=== PATIENT | male | born 1935 | race Caucasian/White ===

== ENCOUNTER 2018-08-10 22:30 | Inpatient (IN) ==
[2018-08-11] MEDS ORDERED: ALBUTEROL/IPRATROPIUM 3 ML NEB RESP TX STA (00:10)
[2018-08-11] MEDS ORDERED: methylPREDNISolone SOD SUC 125 MG/2 ML VIAL IV STA (00:12)
[2018-08-11 00:33] LABS: Basophils % 0.4 % (0.0-0.8); Eosinophils % 0.2 % (0.00-10.9); Hematocrit 47.8 VOL% (42.0-52.0); Hemoglobin 15.5 GM/DL (14.0-18.0); Immature Granulocytes % 1.1 %; Immature Granulocytes Absolute 0.09 #; Lymphocytes # 0.6 10*3/uL (1.4-4.0); Lymphocytes % 6.4 % (21.2-54.2); Mean Corpuscular HGB Conc 32.4 GM/DL (32-36); Mean Corpuscular Hemoglobin 30 PG (27-34); Mean Corpuscular Volume 90.9 FL (87-102); Mean Platelet Volume 13.1 FL (9.6-12.0); Neutrophils # 6.8 10*3/uL (1.4-7.4); Neutrophils % 79.9 % (38.7-73.9); Platelet Count 132 T/CUMM (130-400); Red Blood Count 5.26 MC/CUMM (3.8-5.5); Red Cell Distribution Width 13.9 % (9.3-17.3); White Blood Count 8.6 T/CUMM (4-12)
[2018-08-11 00:40] LABS: Albumin 3.4 G/DL (3.4-5.0); Bilirubin,Total 0.6 MG/DL (0.2-1.0); Calcium 8.9 MG/DL (8.5-10.1); Osmolality,Calculated 290.8 MOS/KG (273-304); Potassium 3.3 MMOL/L (3.5-5.1); Total Protein 6.2 G/DL (6.4-8.3)
[2018-08-11 00:54] LABS: Apearance,Urine CLEAR (Clear); Bilirubin,Urine Negative (Negative); Blood, Urine Negative (Negative); Glucose,Urine (UA) Negative (Negative); Hyaline Casts,Urine 3 /LPF (0-3); Ketones,Urine Negative (Negative); Mucus,Urine Occasional /LPF (Occasional); Nitrite,Urine Negative (Negative); Protein,Urine Negative; RBC,Urine 1 /HPF (0-4); Squamous Epithelial Cell,Urine Occasional /HPF (0-10); Urine Color Yellow (Yellow); Urine Urobilinogen < 2.0 EU/DL (0.2-1.0); WBC,Urine 4 /HPF (0-6)
[2018-08-11] MEDS: ALBUTEROL/IPRATROPIUM 3 ML NEB RESP TX SCH ×3 (01:10→19:16)
[2018-08-11] MEDS ORDERED: ALBUTEROL 2.5 MG/3 ML NEB RESP TX PRN (03:26)
[2018-08-11] MEDS ORDERED: BISACODYL 5 MG TABLET PO PRN (03:30)
[2018-08-11] MEDS ORDERED: ACETAMINOPHEN 325 MG TABLET PO PRN (03:30)
[2018-08-11] MEDS ORDERED: ONDANSETRON 4 MG/2 ML VIAL IV PRN (03:30)
[2018-08-11] MEDS ORDERED: cefTRIAXone 1,000 MG in SYRINGE 1 EACH IV SCH (04:00)
[2018-08-11] MEDS: AZITHROMYCIN INJ 500 MG in SODIUM CHLORIDE 0.9% 250 ML IV SCH (04:34)
[2018-08-11] MEDS ORDERED: MAGNESIUM SULF RIDER 4 GM in PREMIX 1 EACH IV PRN (08:52)
[2018-08-11] MEDS ORDERED: MAGNESIUM SULF RIDER 2 GM in PREMIX 1 EACH IV PRN (08:52)
[2018-08-11] MEDS ORDERED: NON-FORMULARY MEDICATION (Tiotropium Inhalation 18 MCG) INH SCH (09:00)
[2018-08-11] MEDS: MULTIVITAMIN (CENTRUM) TABLET PO SCH (09:08)
[2018-08-11] MEDS: ROFLUMILAST 500 MCG TABLET PO SCH (09:08)
[2018-08-11] MEDS: MONTELUKAST 10 MG TABLET PO SCH (09:08)
[2018-08-11] MEDS: METOPROLOL SUCCINATE XL 50 MG TABLET PO SCH ×2 (09:08→20:43)
[2018-08-11] MEDS: ASPIRIN EC 81 MG TABLET PO SCH (09:09)
[2018-08-11] MEDS: methylPREDNISolone SOD SUC 40 MG/1 ML VIAL IV SCH ×2 (09:10→17:43)
[2018-08-11] MEDS: ENOXAPARIN 40 MG/0.4 ML SYRINGE SUBCUT SCH (09:12)
[2018-08-11] MEDS: FLUTICASONE/SALMETEROL 250-50 DISKUS 14 DOSE INH SCH ×2 (10:12→20:42)
[2018-08-11] MEDS: LISINOPRIL/HCTZ 20-12.5 MG TABLET PO SCH ×2 (10:13→20:43)
[2018-08-11] MEDS: DIPYRIDAMOLE 50 MG TABLET PO SCH ×2 (10:14→20:43)
[2018-08-11] MEDS ORDERED: GLUCAGON 1 MG VIAL IM PRN (13:25)
[2018-08-11] MEDS ORDERED: DEXTROSE 50% 25 GM/50 ML VIAL IV PRN (13:25)
[2018-08-11] MEDS: LIDOCAINE 5% PATCH TRANSDERM SCH (13:53)
[2018-08-11] MEDS: CLOTRIMAZOLE 1% CREAM 15 GM TUBE TOP SCH ×2 (13:55→20:42)
[2018-08-11] MEDS: POTASSIUM CHLORIDE 20 MEQ TABLET PO PRN ×3 (14:32→18:24)
[2018-08-11] MEDS: INSULIN LISPRO 100 UNIT/ML SUBCUT SCH (16:29)
[2018-08-11] MEDS: CEFEPIME 1,000 MG in SYRINGE 1 EACH IV SCH (17:46)
[2018-08-11] MEDS: TAMSULOSIN 0.4 MG CAPSULE PO SCH (20:43)
[2018-08-11] MEDS: PRAVASTATIN 40 MG TABLET PO SCH (20:43)
[2018-08-11] MEDS: FINASTERIDE 5 MG TABLET PO SCH (20:44)
[2018-08-12] MEDS: ALBUTEROL/IPRATROPIUM 3 ML NEB RESP TX SCH ×4 (00:03→20:10)
[2018-08-12] MEDS: methylPREDNISolone SOD SUC 40 MG/1 ML VIAL IV SCH ×3 (00:39→16:03)
[2018-08-12] MEDS: CEFEPIME 1,000 MG in SYRINGE 1 EACH IV SCH ×2 (05:18→21:42)
[2018-08-12 05:55] LABS: Hematocrit 48.1 VOL% (42.0-52.0); Hemoglobin 15.9 GM/DL (14.0-18.0); Immature Granulocytes % 0.5 %; Immature Granulocytes Absolute 0.06 #; Lymphocytes # 0.4 10*3/uL (1.4-4.0); Lymphocytes % 3.6 % (21.2-54.2); Mean Corpuscular HGB Conc 33.1 GM/DL (32-36); Mean Corpuscular Hemoglobin 30 PG (27-34); Mean Corpuscular Volume 90.9 FL (87-102); Mean Platelet Volume 12.9 FL (9.6-12.0); Monocytes # 0.5 10*3/uL (0.11-0.8); Monocytes % 4.9 % (1.7-12.7); Platelet Count 140 T/CUMM (130-400); Red Blood Count 5.29 MC/CUMM (3.8-5.5); Red Cell Distribution Width 13.8 % (9.3-17.3)
[2018-08-12 06:16] LABS: Calcium 8.9 MG/DL (8.5-10.1); Potassium 4.1 MMOL/L (3.5-5.1)
[2018-08-12 06:21] LABS: Risk Ratio 1.78; Thyroid Stimulating Hormone 0.262 uIU/ml (0.358-3.74); VLDL CHOLESTEROL 9.4 MG/DL
[2018-08-12 06:23] LABS: Lymphocytes 2 % (20-55); Platelet Estimate Decreased; Segmented Neutrophils 94 % (50-85); Total Cells Counted 100
[2018-08-12] MEDS: INSULIN LISPRO 100 UNIT/ML SUBCUT SCH ×3 (08:03→16:02)
[2018-08-12] MEDS: MULTIVITAMIN (CENTRUM) TABLET PO SCH (08:42)
[2018-08-12] MEDS: METOPROLOL SUCCINATE XL 50 MG TABLET PO SCH ×2 (08:42→21:42)
[2018-08-12] MEDS: ENOXAPARIN 40 MG/0.4 ML SYRINGE SUBCUT SCH (08:42)
[2018-08-12] MEDS: ROFLUMILAST 500 MCG TABLET PO SCH (08:42)
[2018-08-12] MEDS: MONTELUKAST 10 MG TABLET PO SCH (08:42)
[2018-08-12] MEDS: LISINOPRIL/HCTZ 20-12.5 MG TABLET PO SCH ×2 (08:42→21:42)
[2018-08-12] MEDS: ASPIRIN EC 81 MG TABLET PO SCH (08:42)
[2018-08-12] MEDS: DIPYRIDAMOLE 50 MG TABLET PO SCH ×2 (08:42→21:42)
[2018-08-12] MEDS: LIDOCAINE 5% PATCH TRANSDERM SCH (08:43)
[2018-08-12] MEDS: CLOTRIMAZOLE 1% CREAM 15 GM TUBE TOP SCH ×2 (08:43→21:41)
[2018-08-12] MEDS: FLUTICASONE/SALMETEROL 250-50 DISKUS 14 DOSE INH SCH ×2 (08:43→21:41)
[2018-08-12] MEDS: AZITHROMYCIN INJ 500 MG in SODIUM CHLORIDE 0.9% 250 ML IV SCH (08:45)
[2018-08-12] MEDS: PRAVASTATIN 40 MG TABLET PO SCH (21:42)
[2018-08-12] MEDS: FINASTERIDE 5 MG TABLET PO SCH (21:42)
[2018-08-12] MEDS: TAMSULOSIN 0.4 MG CAPSULE PO SCH (21:42)
[2018-08-13] MEDS: ALBUTEROL/IPRATROPIUM 3 ML NEB RESP TX SCH ×2 (00:50→07:07)
[2018-08-13] MEDS: methylPREDNISolone SOD SUC 40 MG/1 ML VIAL IV SCH ×2 (01:12→08:51)
[2018-08-13 04:52] LABS: Hematocrit 48.6 VOL% (42.0-52.0); Hemoglobin 15.6 GM/DL (14.0-18.0); Immature Granulocytes % 0.4 %; Immature Granulocytes Absolute 0.05 #; Lymphocytes # 0.5 10*3/uL (1.4-4.0); Lymphocytes % 4.4 % (21.2-54.2); Mean Corpuscular HGB Conc 32.1 GM/DL (32-36); Mean Corpuscular Hemoglobin 30 PG (27-34); Mean Corpuscular Volume 92.9 FL (87-102); Mean Platelet Volume 12.3 FL (9.6-12.0); Monocytes # 0.5 10*3/uL (0.11-0.8); Monocytes % 4.6 % (1.7-12.7); Neutrophils # 10.3 10*3/uL (1.4-7.4); Neutrophils % 90.6 % (38.7-73.9); Platelet Count 133 T/CUMM (130-400); Red Blood Count 5.23 MC/CUMM (3.8-5.5); Red Cell Distribution Width 13.6 % (9.3-17.3); White Blood Count 11.4 T/CUMM (4-12)
[2018-08-13 05:13] LABS: Calcium 8.7 MG/DL (8.5-10.1); Osmolality,Calculated 292.1 MOS/KG (273-304); Potassium 4.4 MMOL/L (3.5-5.1)
[2018-08-13 05:26] LABS: Lymphocytes 2 % (20-55); Ovalocytes Slight; Segmented Neutrophils 96 % (50-85); Total Cells Counted 100
[2018-08-13 05:27] LABS: Microcytosis Slight; Platelet Estimate Adequate
[2018-08-13] MEDS: INSULIN LISPRO 100 UNIT/ML SUBCUT SCH (07:16)
[2018-08-13 07:26] VITALS: BP 147/79
[2018-08-13] MEDS: FLUTICASONE/SALMETEROL 250-50 DISKUS 14 DOSE INH SCH (08:49)
[2018-08-13] MEDS: CLOTRIMAZOLE 1% CREAM 15 GM TUBE TOP SCH (08:49)
[2018-08-13] MEDS: ROFLUMILAST 500 MCG TABLET PO SCH (08:50)
[2018-08-13] MEDS: ENOXAPARIN 40 MG/0.4 ML SYRINGE SUBCUT SCH (08:50)
[2018-08-13] MEDS: METOPROLOL SUCCINATE XL 50 MG TABLET PO SCH (08:50)
[2018-08-13] MEDS: DIPYRIDAMOLE 50 MG TABLET PO SCH (08:50)
[2018-08-13] MEDS: MULTIVITAMIN (CENTRUM) TABLET PO SCH (08:50)
[2018-08-13] MEDS: MONTELUKAST 10 MG TABLET PO SCH (08:50)
[2018-08-13] MEDS: ASPIRIN EC 81 MG TABLET PO SCH (08:50)
[2018-08-13] MEDS: LISINOPRIL/HCTZ 20-12.5 MG TABLET PO SCH (08:50)
[2018-08-13] MEDS: CEFEPIME 1,000 MG in SYRINGE 1 EACH IV SCH (08:51)
[2018-08-13] MEDS: AZITHROMYCIN INJ 500 MG in SODIUM CHLORIDE 0.9% 250 ML IV SCH (08:59)
[2018-08-13] MEDS: LIDOCAINE 5% PATCH TRANSDERM SCH (09:09)
[2018-08-13] MEDS ORDERED: INFLUENZA VIRUS VACCINE 0.5 ML SYRINGE IM ONE (10:00)
== END 2018-08-13 11:15 | disposition hospice, home (50) | DRG 190 ==
LOC: N.ED 22:30 → N.EDINP 08-11 03:25 → N.2E 08-11 03:52
PROVIDERS: ADMIT Internal Medicine; ATTEND Internal Medicine

== ENCOUNTER 2019-05-10 07:11 | Observation (INO) ==
[2019-05-10] MEDS ORDERED: ASPIRIN 325 MG TABLET PO STA ×2 (07:44→08:08)
[2019-05-10] MEDS ORDERED: ALBUTEROL 2.5 MG/3 ML NEB RESP TX STA (07:46)
[2019-05-10 08:02] LABS: Basophils # 0.1 10*3/uL (0.0-0.2); Basophils % 0.3 % (0.0-0.8); Eosinophils % 0.1 % (0.00-10.9); Hematocrit 45.2 VOL% (42.0-52.0); Hemoglobin 14.5 GM/DL (14.0-18.0); Immature Granulocytes % 0.7 %; Immature Granulocytes Absolute 0.13 #; Lymphocytes # 1.1 10*3/uL (1.4-4.0); Lymphocytes % 6.1 % (21.2-54.2); Mean Corpuscular HGB Conc 32.1 GM/DL (32-36); Mean Corpuscular Volume 91.5 FL (87-102); Mean Platelet Volume 11.6 FL (9.6-12.0); Monocytes % 8.8 % (1.7-12.7); Platelet Count 141 T/CUMM (130-400); Red Blood Count 4.94 MC/CUMM (3.8-5.5); Red Cell Distribution Width 14.1 % (9.3-17.3); White Blood Count 18.4 T/CUMM (4-12)
[2019-05-10 08:10] LABS: INR 1.1; Partial Thromboplastin Time 29.8 SECS (0-40)
[2019-05-10 08:18] LABS: Albumin 3.5 G/DL (3.4-5.0); Calcium 8.9 MG/DL (8.5-10.1); Osmolality,Calculated 282.4 MOS/KG (273-304); Total Protein 5.7 G/DL (6.4-8.3)
[2019-05-10 08:37] LABS: Apearance,Urine CLEAR (Clear); Bilirubin,Urine Negative (Negative); Blood, Urine Small mg/dL (Negative); Glucose,Urine (UA) Negative (Negative); Ketones,Urine Negative (Negative); Mucus,Urine Few /LPF (Occasional); Nitrite,Urine Negative (Negative); Protein,Urine Negative; RBC,Urine 30 /HPF (0-4); Urine Color Yellow (Yellow); Urine Specific Gravity 1.017 (1.001-1.035); Urine Urobilinogen < 2.0 EU/DL (0.2-1.0); WBC,Urine 4 /HPF (0-6)
[2019-05-10] MEDS ORDERED: LEVOFLOXACIN INJ 500 MG in PREMIX 1 EACH IV STA (08:46)
[2019-05-10] MEDS ORDERED: methylPREDNISolone SOD SUC 125 MG/2 ML VIAL IV STA (08:46)
[2019-05-10] MEDS ORDERED: ENOXAPARIN 80 MG/0.8 ML SYRINGE SUBCUT STA (09:30)
[2019-05-10] MEDS ORDERED: ONDANSETRON 4 MG/2 ML VIAL IV PRN (11:08)
[2019-05-10] MEDS ORDERED: ACETAMINOPHEN 325 MG TABLET PO PRN (11:08)
[2019-05-10] MEDS ORDERED: DOCUSATE SODIUM 100 MG CAPSULE PO PRN (11:08)
[2019-05-10 11:53] LABS: Risk Ratio 1.61; Thyroid Stimulating Hormone 0.376 uIU/ml (0.358-3.74); VLDL CHOLESTEROL 9.4 MG/DL
[2019-05-10] MEDS ORDERED: ALBUTEROL/IPRATROPIUM 3 ML NEB RESP TX PRN (14:57)
[2019-05-10] MEDS ORDERED: FINASTERIDE 5 MG TABLET PO SCH (21:00)
[2019-05-10] MEDS ORDERED: FLUTICASONE/SALMETEROL 250-50 DISKUS 14 DOSE INH SCH (21:00)
[2019-05-10] MEDS ORDERED: ROSUVASTATIN 20 MG TABLET PO SCH (21:00)
[2019-05-10] MEDS ORDERED: TAMSULOSIN 0.4 MG CAPSULE PO SCH (21:00)
[2019-05-10] MEDS: LISINOPRIL 10 MG TABLET PO SCH (21:01)
[2019-05-10] MEDS: METOPROLOL TARTRATE 50 MG TABLET PO SCH (21:01)
[2019-05-10] MEDS: ENOXAPARIN 80 MG/0.8 ML SYRINGE SUBCUT SCH (21:02)
[2019-05-10] MEDS: fentaNYL 25 MCG/HR PATCH TRANSDERM SCH (21:02)
[2019-05-11 05:56] LABS: Basophils % 0.2 % (0.0-0.8); Hematocrit 50.9 VOL% (42.0-52.0); Hemoglobin 16.1 GM/DL (14.0-18.0); Immature Granulocytes Absolute 0.19 #; Lymphocytes % 5.4 % (21.2-54.2); Mean Corpuscular HGB Conc 31.6 GM/DL (32-36); Mean Corpuscular Volume 93.4 FL (87-102); Mean Platelet Volume 11.7 FL (9.6-12.0); Monocytes % 4.8 % (1.7-12.7); Neutrophils % 88.6 % (38.7-73.9); Platelet Count 173 T/CUMM (130-400); Red Blood Count 5.45 MC/CUMM (3.8-5.5); Red Cell Distribution Width 13.9 % (9.3-17.3); White Blood Count 18.7 T/CUMM (4-12)
[2019-05-11 06:25] LABS: Albumin 3.6 G/DL (3.4-5.0); Bilirubin,Total 0.6 MG/DL (0.2-1.0); Calcium 9.9 MG/DL (8.5-10.1); Osmolality,Calculated 284.4 MOS/KG (273-304); Total Protein 7.1 G/DL (6.4-8.3)
[2019-05-11] MEDS: IPRATROPIUM 500 MCG/2.5 ML NEB RESP TX SCH ×2 (07:42→11:02)
[2019-05-11] MEDS: fentaNYL 25 MCG/HR PATCH TRANSDERM SCH (08:12)
[2019-05-11] MEDS: METOPROLOL TARTRATE 50 MG TABLET PO SCH (08:12)
[2019-05-11] MEDS: LISINOPRIL 10 MG TABLET PO SCH (08:12)
[2019-05-11] MEDS: ENOXAPARIN 80 MG/0.8 ML SYRINGE SUBCUT SCH (08:12)
[2019-05-11] MEDS ORDERED: CLOPIDOGREL 75 MG TABLET PO SCH (09:00)
[2019-05-11] MEDS ORDERED: MONTELUKAST 10 MG TABLET PO SCH (09:00)
[2019-05-11] MEDS ORDERED: FUROSEMIDE 40 MG TABLET PO SCH (09:00)
[2019-05-11] MEDS ORDERED: LEVOFLOXACIN INJ 500 MG in PREMIX 1 EACH IV SCH (09:00)
[2019-05-11] MEDS ORDERED: PANTOPRAZOLE 40 MG TABLET PO SCH (09:00)
[2019-05-11] MEDS ORDERED: ASPIRIN EC 81 MG TABLET PO SCH (09:00)
[2019-05-11] MEDS ORDERED: ROFLUMILAST 500 MCG TABLET PO SCH (09:00)
[2019-05-11 12:03] VITALS: BP 111/55
== END 2019-05-11 13:30 | disposition hospice, home (50) ==
LOC: N.EDINP 07:11 → N.ED 07:11 → SUATTDRO 09:00 → N.2E 13:27
PROVIDERS: ADMIT Family Medicine; ATTEND Internal Medicine